=== PATIENT | female | born 1945 | race Two or more races ===

== ENCOUNTER → 2017-05-17 | Outpatient (CLI) | payer OTHER | LOC: FIMAGING 07:22 | PROVIDERS: ATTEND Internal Medicine | DX: K76.0 Fatty (change of) liver, not elsewhere classified (principal) ==

== ENCOUNTER → 2017-10-27 | Outpatient (CLI) | payer OTHER | LOC: FIMAGING 08:53 | PROVIDERS: ATTEND Internal Medicine | DX: R05 Cough (principal); R06.02 Shortness of breath ==

== ENCOUNTER 2017-11-28 10:57 | Emergency (ER) | payer OTHER ==
--- NOTE | 2017-11-28 12:12 | CPEKG ---
Heart Rate: 77 RR Interval: 779 P-R Interval: 160 QRSD Interval: 92 QT Interval: 400 QTC Interval: 453 P [place]: 37 QRS [place]: 57 T Wave [place]: -19 EKG Severity - ABNORMAL ECG - EKG Impression: SINUS RHYTHM EKG Impression: VENTRICULAR PREMATURE COMPLEX EKG Impression: NONSPECIFIC T ABNORMALITIES, INFERIOR LEADS Electronically Signed By: Robert Dao 30-Nov-2017 11:18:21
[2017-11-28] MEDS ORDERED: ASPIRIN 81 MG CHEWABLE TAB PO ONE (12:29)
[2017-11-28] MEDS ORDERED: FAMOTIDINE 20 MG/2 ML SDV IVP ONE (12:30)
[2017-11-28 12:37] LABS: PLATELET COUNT 219 10^3/uL (150-400)
--- NOTE | 2017-11-28 13:01 | EDPHY ---
H & P Stated Complaint: feels a lump in throat and chest/seen at sent for ekg Time Seen by Provider: 11/28/17 12:00 HPI/ROS: CHIEF COMPLAINT: Lump in throat and chest HISTORY OF PRESENT ILLNESS: This is a 72-year-old female with a history of hypertension and anxiety who presents because of sensation of a lump in her throat and mid sternal region. This began around 2:00 a.m. last night. She was evaluated at urgent care this morning and referred to the ED for cardiac evaluation. No family history of cardiac disease. REVIEW OF SYSTEMS: A ten point review of systems was performed and is negative with the exception of the items mentioned in the HPI. Past medical history: Anxiety, hypertension, [facility] EBCT 2014 showed calcium score of 125.99 Past surgical history: Noncontributory. Family history: Diabetes. No known cardiac history in family members. Social history: PCP: Dr. De La Cruz General Appearance: Alert. Vital signs reviewed. Eyes: Pupils equal and round, no conjunctival injection, no discharge. Anicteric. ENT, Mouth: Mucous membranes are moist, no oropharyngeal erythema or edema. Neck: No lymphadenopathy, supple. Trachea midline. No palpable mass. Respiratory: Lungs are clear to auscultation; no wheezes, rales, or rhonchi. Cardiovascular: Regular rate and rhythm; no murmur, rub, or gallop. Gastrointestinal: Abdomen is soft and nontender, no masses or organomegaly, bowel sounds normal. Skin: Warm and dry, no rashes on exposed skin, normal color. Back: Nontender to palpation over the thoracolumbar spine. No CVAT. Extremities: No lower extremity edema, no calf tenderness or swelling. Neurological: Alert and oriented. Moving all four extremities easily and equally. Facial expression symmetric. Tongue midline. Psychiatric: Normal affect. - Personal History Current Tetanus/Diphtheria Vaccine: No - Medical/Surgical History Hx Asthma: No Hx Chronic Respiratory Disease: No Hx Diabetes: No Hx Cardiac Disease: No Hx Renal Disease: No Hx Cirrhosis: No Hx Alcoholism: No Hx HIV/AIDS: No Hx Splenectomy or Spleen Trauma: No Other PMH: htn - Social History Smoking Status: Never smoked Constitutional: Initial Vital Signs Temperature (C) 36.6 C 11/28/17 11:15 Heart Rate 84 11/28/17 11:15 Respiratory Rate 18 11/28/17 11:15 Blood Pressure 170/87 H 11/28/17 11:15 O2 Sat (%) 97 11/28/17 11:15 O2 Delivery Mode Room Air Allergies/Adverse Reactions: Sulfa (Sulfonamide Antibiotics) Allergy (Verified 11/28/17 11:14) Home Medications: Medication Instructions Recorded Losartan Potassium 11/28/17 buPROPion 11/28/17 Medical Decision Making - Diagnostics Imaging: Discussed imaging studies w/ callisthenics instructor Radiologist, I viewed and interpreted images myself ED Course/Re-evaluation: The 12 lead EKG was interpreted by myself. Sinus mechanism with PVC. Rate 77. See hard copy and/or "tracemaster" electronic copy for interpretation. Labs including troponin are normal. Chest x-ray negative for acute process. 1406: Reassessed patient. She is feeling much better after eating some crackers and drinking juice. She does continue to feel anxious. She scores a 4 on the HEART Score, which places her in the moderate risk category with a 12-16.6% risk of an adverse cardiac event in the next 6 weeks. I recommended admission for provocative cardiac testing, but the patient would prefer to talk with her PCP tomorrow and arrange this as an outpatient. She understands that we have not rib ruled out cardiac disease as etiology for her discomfort. She understands that she could have a heart attack and even . She is comfortable taking this risk. I have reviewed the HEART scoring with her. I do not suspect an infectious process. She has no lymphadenopathy. I do not feel a mass in her neck. This could be GERD and she and I discussed that possibility. I recommended an antacid daily for 2 weeks. Differential Diagnosis: Chest pain including but not limited to myocardial ischemia, pulmonary embolus, chest wall pain, pleural inflammation and pulmonary infectious causes. - Data Points Laboratory Results: Laboratory Results 11/28/17 12:25 11/28/17 12:25 Medications Given: Discontinued Medications Aspirin (Aspirin) 324 mg PO EDNOW ONE Stop: 11/28/17 12:30 Last Admin: 11/28/17 13:04 Dose: 324 mg Famotidine (Pepcid) 20 mg IVP EDNOW ONE Stop: 11/28/17 12:31 Last Admin: 11/28/17 13:04 Dose: 20 mg Departure - Departure Disposition: Home, Routine, Self-Care Clinical Impression: Chest pain Qualifiers: Chest pain type: unspecified Qualified Code(s): R07.9 - Chest pain, unspecified Condition: Good Instructions: Chest Pain (ED) Additional Instructions: For acid reflux, I recommend taking Pepcid daily as directed on the packaging. Use Maalox or Mylanta as directed on the packaging when needed for symptoms. Follow up with your primary care provider tomorrow and discuss scheduling provocative cardiac testing including a stress test as soon as possible. You've been referred to a instrument lens grinder for follow up as well if your PCP is unable to arrange this. If you develop chest pain, shortness of breath, lightheadedness, faint, break out into a sweat, become nauseated or vomit, or anything changes call 911 and return to the ED immediately. Referrals: Tabby De La Cruz MD [Primary Care Provider] - As per Instructions
[2017-11-28 14:27] VITALS: BP 151/91
== END 2017-11-28 14:39 | disposition home or self-care (01) ==
DX: R07.9 Chest pain, unspecified (principal); I10 Essential (primary) hypertension
CPT/HCPCS: 96374